=== PATIENT | male | born 1985 | race African-American/Black ===

== ENCOUNTER 2018-02-20 01:51 | Emergency (ER) | payer SELFPAY ==
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
[2018-02-20] MEDS: ONDANSETRON HCL/PF 4 MG/ 2ML VIAL IVP ONE (02:09)
[2018-02-20] MEDS: fentaNYL CITRATE/PF 100 MCG/ 2ML AMP IVP ONE (02:10)
[2018-02-20] MEDS: LACTATED RINGERS 1,000 ML IV ONE (02:17)
[2018-02-20] MEDS: HYDROmorphone HCL/PF 2 MG/ML DISP.SYRIN IVP ONE ×2 (02:19→03:09)
[2018-02-20 04:28] VITALS: BP 149/78
== END 2018-02-20 04:20 | disposition short-term general hospital (02) ==
LOC: ED 01:51
DX: T23.201A Burn of second degree of right hand, unspecified site, initial encounter (principal); T24.201A Burn of second degree of unspecified site of right lower limb, except ankle and foot, initial encounter; X10.2XXA Contact with fats and cooking oils, initial encounter; Y92.010 Kitchen of single-family (private) house as the place of occurrence of the external cause; Y93.G3 Activity, cooking and baking; Y99.9 Unspecified external cause status
CPT/HCPCS: J1170; J2405; J3010; J7120; 96374; 96376; 99285; S1016